=== PATIENT | female | born 2000 | race Caucasian/White ===

== ENCOUNTER 2023-02-06 20:08 | Inpatient (IN) | payer BC ==
[~2023-02-06 20:08] MED LIST: Bupivacaine 0.25% HCL 30 ML VIAL ONE
[2023-02-06] MEDS ORDERED: hydrALAZINE 20 MG/ML VIAL SLOW IVP PRN ×2 (21:15→21:30)
[2023-02-06] MEDS ORDERED: fentaNYL 50 mcg/mL 1 mL Vial SLOW IVP PRN (21:30)
[2023-02-06] MEDS ORDERED: Ondansetron PF 4 MG/2 ML Vial IVP PRN (21:30)
[2023-02-06] MEDS ORDERED: Lactated Ringer's 1,000 ML IV PRN (21:30)
[2023-02-06] MEDS ORDERED: HYDROcodone/Acetaminophen 5/325 mg Tablet PO PRN ×2 (21:30)
[2023-02-06] MEDS ORDERED: Penicillin G Potassium 5 MILL.UNITS in Sodium Chloride 0.9% 100 ML IVPB SCH (21:30)
[2023-02-06] MEDS ORDERED: Zolpidem Tartrate 5 MG TAB PO PRN (21:30)
[2023-02-06] MEDS ORDERED: Promethazine HCl 25 MG/ML VIAL IM PRN (21:30)
[2023-02-06] MEDS ORDERED: Lidocaine 1% (PF) 30 ML VIAL SC PRN (21:30)
[2023-02-06] MEDS ORDERED: NS w/ Oxytocin 30 units 500 ML IV SCH (21:30)
[2023-02-06] MEDS ORDERED: Misoprostol 200 MCG TAB PR PRN (21:30)
[2023-02-06] MEDS ORDERED: Ibuprofen 800 MG TAB PO PRN (21:30)
[2023-02-06 21:38] VITALS: BMI 23.9
[2023-02-06 21:44] LABS: Hemoglobin 14.8 g/dL (12.0-15.5); Mean Corpuscular HGB CONC 35.4 g/dL (32.0-36.0); Mean Corpuscular Volume 93.3 fl (81.6-98.3); Mean Platelet Volume 10.7 fl (7.4-10.4); Platelet Count 290 10x3/uL (150-450); RBC Distribution Width 12.4 % (11.5-14.5); Red Blood Cell (RBC) Count 4.48 10x6/uL (3.90-5.03); White Blood Cell (WBC) Count 11.5 10x3/uL (3.5-10.5)
[2023-02-06 22:12] LABS: HBSAg Index 0.16 S/CO (0-0.99); Hep B Surf Ag - L&D Non-Reactive S/CO (NonReactive); Syphilis Antibody Nonreactive (Nonreactive); Syphilis Antibody Index 0.03 S/CO (<1.00 Non-Reactive)
[2023-02-07] MEDS: Penicillin G 2.5 MILL.units 2.5 MILL.UNITS in Premix Bag 1 BAG IVPB SCH ×5 (02:54→20:10)
[2023-02-07] MEDS ORDERED: fentaNYL/Ropivacaine Epidural 100 ML ONE (12:25)
[2023-02-07] MEDS ORDERED: Lactated Ringer's 500 ML IV PRN (13:59)
[2023-02-07] MEDS ORDERED: Moisturizing Cream (Eucerin) 113 GM JAR TOP PRN (13:59)
[2023-02-07] MEDS ORDERED: Ondansetron PF 4 MG/2 ML Vial IVP PRN (13:59)
[2023-02-07] MEDS ORDERED: ePHEDrine Sulfate 50 MG/10 ML VIAL SLOW IVP PRN (13:59)
[2023-02-07] MEDS ORDERED: Naloxone HCl 0.4 mg/ml Vial IVP PRN ×2 (13:59)
[2023-02-07] MEDS ORDERED: diphenhydrAMINE 50 MG/ML VIAL IVP PRN (13:59)
[2023-02-07] MEDS ORDERED: Acetaminophen 325 MG TAB PO PRN (13:59)
[2023-02-07] MEDS ORDERED: Promethazine HCl 25 MG/ML VIAL IM PRN (13:59)
[2023-02-07] MEDS ORDERED: Communication Order-Pharmacy FS SCH (14:00)
[2023-02-07] MEDS ORDERED: fentaNYL 2 mcg/Ropivacaine 0.2% Epidural 100 ML CADD EPIDURAL SCH (14:00)
[2023-02-07] MEDS ORDERED: Milk Of Magnesia 30 ML UDCUP PO PRN ×2 (20:10→22:09)
[2023-02-07] MEDS ORDERED: Boostrix 0.5 ML (Tdap) VIAL (>/=7 yrs of age) IM ONE ×2 (20:10→22:09)
[2023-02-07] MEDS ORDERED: Misoprostol 200 MCG TAB VAG PRN ×2 (20:10→22:09)
[2023-02-07] MEDS ORDERED: Lanolin Ointment 7 GM TUBE TOP PRN ×2 (20:10→22:09)
[2023-02-07] MEDS ORDERED: HYDROcodone/Acetaminophen 5/325 mg Tablet PO PRN ×4 (20:10→22:09)
[2023-02-07] MEDS ORDERED: Benzocaine-Menthol 82.5 ML CAN TOP PRN ×2 (20:10→22:09)
[2023-02-07] MEDS ORDERED: hydrALAZINE 20 MG/ML VIAL SLOW IVP PRN ×2 (20:10→22:09)
[2023-02-07] MEDS ORDERED: NS w/ Oxytocin 30 units 500 ML IV SCH ×2 (20:10→22:15)
[2023-02-07] MEDS ORDERED: Bisacodyl 10 MG SUPP PR PRN ×2 (20:10→22:09)
[2023-02-07] MEDS ORDERED: Docusate 100 MG CAP PO SCH (21:00)
[2023-02-07] MEDS ORDERED: Ibuprofen 800 MG TAB PO SCH (22:00)
[2023-02-07] MEDS: Ibuprofen 800 MG TAB PO SCH (22:50)
[2023-02-08] MEDS: Ibuprofen 800 MG TAB PO SCH ×2 (03:48→16:17)
[2023-02-08] MEDS ORDERED: Ibuprofen 800 MG TAB PO SCH (06:00)
[2023-02-08] MEDS: Ferrous Sulfate 325 MG TAB PO SCH ×2 (07:46→17:54)
[2023-02-08] MEDS ORDERED: Ferrous Sulfate 325 MG TAB PO SCH (08:00)
[2023-02-08] MEDS ORDERED: Prenatal Vitamin 1 TAB PO SCH ×2 (09:00)
[2023-02-08] MEDS: Docusate 100 MG CAP PO SCH ×2 (09:40→10:52)
[2023-02-08 19:54] VITALS: BP 145/85; TEMP 98.1
== END 2023-02-08 22:19 | disposition home or self-care (01) | DRG 807 ==
LOC: CSHLD/OP 20:08 → CSHLD 21:30 → CSHPP 02-07 21:28
PROVIDERS: ADMIT Obstetrics & Gynecology; ATTEND Obstetrics & Gynecology
PROC: 10E0XZZ Delivery of Products of Conception, External Approach (ICD-10-PCS; principal; 2023-02-07)
DX: O42.02 Full-term premature rupture of membranes, onset of labor within 24 hours of rupture (principal); Z37.0 Single live birth; Z3A.40 40 weeks gestation of pregnancy; O75.81 Maternal exhaustion complicating labor and delivery
CPT/HCPCS: 36415; 51702; 85027; 86780; 86850; 86870; 86900; 86901; 87340; J2540; J3490; J7120; S0020